=== PATIENT | female | born 1990 | race Caucasian/White ===

== ENCOUNTER 2016-10-03 09:17 | Emergency (ER) | payer OTHER ==
[2016-10-03 09:23] VITALS: BP 119/80; PULSE 80; RESP 15; TEMP 97.9; O2SAT 99
[2016-10-03] MEDS ORDERED: LET GEL TOPICAL 1 EA SYR TP ONE (09:58)
--- NOTE | 2016-10-03 10:02 | EDPHY ---
H & P Time Seen by Provider: 10/03/16 09:54 HPI/ROS: CHIEF COMPLAINT: Right knee injury HISTORY OF PRESENT ILLNESS: 26-year-old immunocompetent female with up-to-date tetanus arrives via private vehicle complaining of right knee injury. States that shortly prior to arrival she was trail running near the [place] [facility] when she sustained a mechanical fall injuring her right knee. She is able to continue running for approximately 3 miles and then transported via private vehicle. Denies any pain or instability. Denies other injury such as head injury, chest injury, neck injury, proximal or distal injury. Patient also notes a subacute abrasion to her right knee proximal to this area which occurred few days ago. PHYSICAL EXAM (Prior to examination, patient consented to physical exam, hands were washed and my usual and customary physical exam procedures followed) 1) GENERAL: Well-developed, well-nourished, alert and oriented. Appears to be in no acute distress. Observed ambulating with stable steady gait without assistance. 2) HEAD: Normocephalic 3) HEENT: Pupils equal, round, reactive to light bilaterally. 4) LUNGS: Breathing comfortably. 5) MUSCULOSKELETAL: Exam of the right knee shows multiple linear abrasions distal to the patella with dried blood. No visible contaminant. This appears to be superficial . Compartments are soft. No pain with axial loading. Full flexion-extension which is pain free. No instability. Proximal to this acute injury she has a subacute abrasion which is granulating appropriately with no signs of infection. 6) SKIN: abrasion to the right knee distal to the patella 7) VASCULAR: DP,PT pulses and cap refill present and brisk distally DIFFERENTIAL DIAGNOSIS: in no particular order including but not limited to fracture, sprain, traumatic arthrotomy MEDICAL DECISION MAKING Serial evaluations performed on patient. I discussed the limitations of x-ray in diagnosis of knee pain and injury. At this time I do not think that emergent MRI is currently indicated. However, I have recommended follow-up with Orthopedic surgery and provided this referral information. Informed the patient that outpatient MRI may be indicated. Smoking Status: Never smoked Constitutional: Initial Vital Signs Temperature (C) 36.6 C 10/03/16 09:21 Heart Rate 80 10/03/16 09:21 Respiratory Rate 15 10/03/16 09:21 Blood Pressure 119/80 10/03/16 09:21 O2 Sat (%) 99 10/03/16 09:21 O2 Delivery Mode Room Air Allergies/Adverse Reactions: No Known Allergies Allergy (Unverified 03/29/16 14:32) Home Medications: Medication Instructions Recorded Adderall 5 mg Tablet 03/29/16 Cephalexin [Keflex] 500 mg PO TID 5 Days 10/03/16 ED Images - Extremities Legs Front/Back: 1 - Abrasion MDM/Departure - MDM Medications Given: Discontinued Medications Tetracaine/Epinephrine/Lidocaine (Let Gel Topical) 1 ea TP EDNOW ONE Stop: 10/03/16 09:59 Last Admin: 10/03/16 10:23 Dose: 1 ea ED Course/Re-evaluation: The patient's wound has been re-evaluated with serial examinations, most recently at 10:50 a.m. after wound cleaning, she is neurovascularly intact. his wound was anesthetized with topical anesthetic by ER staff and cleansed by ER staff and re-evaluated by myself. This is superficial. She declines x-ray of her right knee. I think that traumatic arthrotomy is less than likely in this patient. I do not think that the benefits of saline load testing outweigh the risks in this patient whom I have a low pretest index of suspicion for traumatic arthrotomy. Will initiate prophylactic antibiotics. Patient has no history of chronic skin infection or known MRSA history. Patient given usual customary wound precautions and instructions - Depart Disposition: Home, Routine, Self-Care Clinical Impression: Abrasion, right knee, initial encounter Qualifiers: Encounter type: initial encounter Qualified Code(s): S80.211A - Abrasion, right knee, initial encounter Condition: Good Instructions: Abrasion (ED) Additional Instructions: Return to the ER if you develop redness, swelling, discharge, warmth to the wound, red streaks going up your leg, or any other symptoms that concern you. Prescriptions: Cephalexin [Keflex] 500 mg PO TID 5 Days Referrals: Danny Dao MD [Medical Doctor] - 2-3 days, call for appt.
== END 2016-10-03 11:00 | disposition home or self-care (01) ==
DX: S80.211A Abrasion, right knee, initial encounter (principal); W18.39XA Other fall on same level, initial encounter; Y99.8 Other external cause status; Y93.02 Activity, running

== ENCOUNTER → 2017-05-02 | Outpatient (CLI) | payer OTHER | LOC: BMCIMAGING 14:53 | PROVIDERS: ATTEND Family Medicine | DX: M25.561 Pain in right knee (principal); Y93.55 Activity, bike riding ==

== ENCOUNTER → 2018-08-28 | Outpatient (CLI) | payer OTHER | LOC: FIMAGING 15:05 | PROVIDERS: ATTEND Family Medicine | DX: R10.2 Pelvic and perineal pain (principal) ==